=== PATIENT | female | born 1990 | race Caucasian/White ===

== ENCOUNTER 2020-04-01 08:54 | Inpatient (IN) | payer OTHER ==
[~2020-04-01] VITALS: Ht 172.7 cm; Wt 87.1 kg
[2020-04-01 09:07] VITALS: BP 157/92
--- NOTE | 2020-04-01 09:30 | NUR ---
UNABLE TO GIVE MEDS, IV NOT IN PLACE. IV TEAM PAGED.
[2020-04-01 09:36] LABS: URINE BLOOD NEGATIVE (Negative); URINE COLOR YELLOW; URINE GLUCOSE-RANDOM* NEGATIVE (Negative); URINE KETONES 2+ (Negative); URINE NITRITE-REFLEX NEGATIVE (Negative); URINE PROTEIN (DIPSTICK) NEGATIVE (Negative); URINE SPECIFIC GRAVITY 1.015 (1.005-1.035)
[2020-04-01 09:48] LABS: URINE LEUKOCYTES-REFLEX 2+ (Negative)
[2020-04-01 09:49] LABS: ICTOTEST (BILI CONFIRMATORY) Negative (Negative); URINE BILIRUBIN NEGATIVE (Negative); URINE CLARITY SL HAZY
[2020-04-01 10:04] LABS: CASTS None Seen /LPF (None Seen); SQUAMOUS >10 Many /LPF (0-3)
[2020-04-01 10:05] LABS: CRYSTALS None Seen /LPF (None Seen); URINE RBC None Seen /HPF (0-2); URINE WBC-REFLEX 6-15 Few /HPF (0-5)
--- NOTE | 2020-04-01 10:46 | NUR ---
HAVE ATTEMPTED TO START IV BY DIFFERENT NURSES. BLOOD DRAWN BUT UNABLE TO START IV. IV TEAM PAGED 3RD TIME.
[2020-04-01] MEDS ORDERED: LORAZEPAM 0.50.5 MG PO (10:55)
[2020-04-01] MEDS ORDERED: HYDROCODON-ACE1 EAC7 PO (10:56)
[2020-04-01 11:02] LABS: HEMATOCRIT 39.8 % (37.0-47.0); HEMOGLOBIN 13.7 gm/dL (12.0-15.0); MCH 36.4 pg (26.0-34.0); MCHC 34.3 g/dL (28.0-37.0); PLATELET COUNT 381 thou/uL (150-400); RBC 3.75 mil/uL (4.20-5.00); RDW 14.6 % (10.5-14.5)
[2020-04-01 12:06] LABS: CALCIUM 8.6 mg/dL (8.5-10.1); CREATININE 0.6 mg/dL (0.6-1.0); POTASSIUM 3.3 mmol/L (3.5-5.1)
[2020-04-01 12:12] LABS: ALBUMIN 2.3 g/dL (3.4-5.0); TOTAL BILIRUBIN 1.2 mg/dL (0.2-1.0); TOTAL PROTEIN 7.2 g/dL (6.4-8.2)
[2020-04-01 12:23] LABS: ABSOLUTE NEUTROPHILS 9.9 thou/uL (1.4-8.2); ANISOCYTOSIS SLIGHT; MACROCYTES SLIGHT
[2020-04-01 15:58] VITALS: BP 114/64
[2020-04-01 16:23] LABS: FOLIC ACID 1.1 ng/mL (8.6-58.9)
[2020-04-01 16:25] LABS: CHOLESTEROL 91 mg/dL (<200); HDL CHOLESTEROL 19 mg/dL (>40); LDL CHOLESTEROL 52 mg/dL (<100); TC:HDL 4.8 Ratio (Not establshd); TRIGLYCERIDE 100 mg/dL (<150); VLDL 20 mg/dL (<40)
[2020-04-01 16:36] VITALS: BP 134/86
[2020-04-01 17:17] VITALS: BP 132/96
--- NOTE | 2020-04-01 17:59 | NUR ---
PT CARE ASSUMED APPROX 1710. ASSESSMENT CHARTED. PT'S HR ELEVATED WHILE COMPLAINING OF PAIN. VITAL SIGNS OTHERWISE STABLE. PT REPORTS ADEQUATE PAIN MANAGEMENT OF LUQ AND BACK PAIN. UP WITH STEADY GAIT. FALL PREVENTION EDUCATION REVIEWED WITH PT AND SHE STATES UNDERSTANDING. POC REVIEWED WITH PT AND SHE DENIES QUESTIONS OR CONCERNS. NO DISTRESS NOTED.
[2020-04-01 19:54] VITALS: BP 136/77
--- NOTE | 2020-04-02 02:56 | NUR ---
PT IS A&OX4. PT HAS A TEMP OF 101.3 AND PULSE IS 126. STATES THAT SHE NEEDS HER LORAZEPAM BECAUSE SHE HAD AN ANXIETY ATTACK. I ADMINISTERED LORAZEPAM AND TYLENOL. PT IS RESTING IN HER ROOM. AT THE BEGINING OF THE SHIFT PT WAS FRUSTRATED THAT HER ROOM PHONE WAS NOT WORKING. RESOLVED HER ISSUE. I WILL CONTINUE TO MONITOR.
[2020-04-02 04:32] VITALS: BP 120/71
[2020-04-02 07:45] VITALS: BP 129/73
[2020-04-02 08:32] LABS: HEMATOCRIT 39.4 % (37.0-47.0); HEMOGLOBIN 13.2 gm/dL (12.0-15.0); MCH 35.9 pg (26.0-34.0); MCHC 33.5 g/dL (28.0-37.0); RBC 3.68 mil/uL (4.20-5.00); RDW 14.5 % (10.5-14.5); WBC 9.6 thou/uL (4.0-11.0)
[2020-04-02 08:48] LABS: CALCIUM 8.4 mg/dL (8.5-10.1); CREATININE 0.5 mg/dL (0.6-1.0); POTASSIUM 3.4 mmol/L (3.5-5.1)
--- NOTE | 2020-04-02 14:08 | NUR ---
Assumed pt care at 7am.Assessment completed.vss but hr was elevated, which was normal for pt.Dr Nichols here,order noted. Pt left for abdominal us and returned to room some minutes later.Anti anxiety med given per pt request. Pt wanted to eat and drink buT Dr Mejia wanted Gi seen pt prior to any po intake except for meds.Pt was tearful and stated that she wasn't staying over the weekend if not seen today by gi.Dr Floyd notified, and Kimberly leyva rounded on pt.Will continue to monitor.
[2020-04-02 15:50] VITALS: BP 136/80
--- NOTE | 2020-04-02 16:30 | NUR ---
CM ATTEMPTED PC TO PT'S ROOM THIS DAY WITH NO RESPONSE. CM PUT SAFTEY NET CLINIC PACKET AND RESOURCES FOR SUBSTANCE ABUSE PROGRAMS IN PT'S WALL HOTEL SERVICE SUPERVISOR. SHOULD PT NEED ADDITIONAL ASSISTANCE UPON DC CM ABLE TO FOLLOW UP.
[2020-04-02 19:40] VITALS: BP 124/72
--- NOTE | 2020-04-03 04:01 | NUR ---
ASSUMED PT CARE AT MIDNIGHT.PT WAS ASLEEP AND SEEMS TO BE IN NO DISTRESS.PT CONT ON IVF ORDERED.PT UP ADLIB IN HER ROOM.PT SLEEPING AT THIS TIME.PT INFORMED TO USE CALL LIGHT FOR ASSISTANCE.CALL LIGHT WITHIN REACH.
[2020-04-03 07:36] VITALS: BP 130/85
[2020-04-03 13:01] LABS: ALBUMIN 1.7 g/dL (3.4-5.0); CALCIUM 7.4 mg/dL (8.5-10.1); CREATININE 0.4 mg/dL (0.6-1.0); DIRECT BILIRUBIN 0.3 mg/dL (<0.1-0.2); MAGNESIUM 1.5 mg/dL (1.8-2.4); PHOSPHORUS 3.7 mg/dL (2.5-4.9); POTASSIUM 3.2 mmol/L (3.5-5.1); TOTAL BILIRUBIN 0.6 mg/dL (0.2-1.0); TOTAL PROTEIN 5.3 g/dL (6.4-8.2)
[2020-04-03] MEDS ORDERED: FOLIC ACID1 MG PO (13:30)
[2020-04-03] MEDS ORDERED: ONDANSETRON HCL4 M2 PO (13:31)
[2020-04-03] MEDS ORDERED: VITAMIN B-125000 MCG SUBLING (13:32)
[2020-04-03] MEDS ORDERED: PROTONIX40 M2 PO (13:33)
[2020-04-03 14:41] VITALS: BP 136/82
--- NOTE | 2020-04-03 16:18 | NUR ---
Assumed pt care at 7am.Pt in and out of bed to the bathroom independently. Assessment completed.vss and hr was better this am compared to yesterday am. Pt was anxious about going home today after seen Dr Ford.But when Dr Diaz rounded,pt c/o bilat le weakness and some labs ordered.When lab reviewed by Dr Diaz,some meds were ordered.When it was time to give these meds and rn explaining to pt,she was upset and frustrated saying that why and how come nobody treated her abnormal labs until today.She went on started cursing.Rn just smile and said Dr Diaz will be notified.After few minutes of paging,Dr Diaz rounded on pt.Antianxiety med given. Pt boyfriend at bs most of the time this afternoon.After mg so4 iv completed,pt might possibly dc home.Will continue to monitor.
[2020-04-03 17:09] VITALS: BP 136/82
== END 2020-04-03 17:37 | disposition home or self-care (01) | DRG 440 ==
LOC: ER 08:54 → EROBS 14:43 → 4W 17:15
PROVIDERS: Emergency Medicine; Nurse Practitioner; ADMIT Hospitalist; ATTEND Hospitalist
DX: K85.90 Acute pancreatitis without necrosis or infection, unspecified (principal); F41.9 Anxiety disorder, unspecified; F10.10 Alcohol abuse, uncomplicated; F12.10 Cannabis abuse, uncomplicated; F32.9 Major depressive disorder, single episode, unspecified; K86.1 Other chronic pancreatitis; J45.909 Unspecified asthma, uncomplicated; E87.6 Hypokalemia; E83.42 Hypomagnesemia; E53.8 Deficiency of other specified B group vitamins; K76.0 Fatty (change of) liver, not elsewhere classified; Z79.899 Other long term (current) drug therapy
CPT/HCPCS: 10040; 10045

== ENCOUNTER 2020-04-12 16:32 | Inpatient (IN) | payer OTHER ==
[~2020-04-12] VITALS: Ht 172.7 cm; Wt 90.8 kg
[~2020-04-12 16:32] MED LIST: FOLIC ACID1 MG PO; HYDROCODON-ACE1 EAC7 PO; LORAZEPAM 0.50.5 MG PO; ONDANSETRON HCL4 M2 PO; PROTONIX40 M2 PO; VITAMIN B-125000 MCG SUBLING
[2020-04-12 16:40] VITALS: BP 143/94
[2020-04-12 16:45] LABS: URINE BILIRUBIN NEGATIVE (Negative); URINE BLOOD NEGATIVE (Negative); URINE CLARITY CLEAR; URINE COLOR YELLOW; URINE GLUCOSE-RANDOM* NEGATIVE (Negative); URINE KETONES NEGATIVE (Negative); URINE NITRITE-REFLEX NEGATIVE (Negative); URINE PROTEIN (DIPSTICK) NEGATIVE (Negative); URINE UROBILINOGEN 0.2 E.U./dl (0.2-1.0)
[2020-04-12 16:46] LABS: URINE LEUKOCYTES-REFLEX 2+ (Negative)
[2020-04-12 16:52] LABS: SQUAMOUS >10 Many /LPF (0-3)
[2020-04-12 16:53] LABS: CASTS None Seen /LPF (None Seen); CRYSTALS None Seen /LPF (None Seen); URINE RBC None Seen /HPF (0-2); URINE WBC-REFLEX 6-15 Few /HPF (0-5)
[2020-04-12 18:25] LABS: ABSOLUTE NEUTROPHILS 8.3 thou/uL (1.4-8.2); BASOPHILS 0.6 % (0.0-2.0); EOSINOPHILS 0.8 % (0.0-3.0); HEMATOCRIT 32.4 % (37.0-47.0); HEMOGLOBIN 11.6 gm/dL (12.0-15.0); MCH 37.1 pg (26.0-34.0); MCHC 35.9 g/dL (28.0-37.0); MCV 103.4 fL (80.0-100.0); MONOCYTES 8.9 % (1.0-8.0); PLATELET COUNT 488 thou/uL (150-400); POLYS 72.7 % (36.0-66.0); RBC 3.13 mil/uL (4.20-5.00); RDW 14.4 % (10.5-14.5); WBC 11.5 thou/uL (4.0-11.0)
[2020-04-12 18:33] LABS: CALCIUM 8.4 mg/dL (8.5-10.1); CREATININE 0.5 mg/dL (0.6-1.0); POTASSIUM 3.8 mmol/L (3.5-5.1)
[2020-04-12 18:40] LABS: ALBUMIN 2.3 g/dL (3.4-5.0); TOTAL BILIRUBIN 0.5 mg/dL (0.2-1.0)
[2020-04-12 21:39] VITALS: BP 130/88
--- NOTE | 2020-04-12 21:47 | NUR ---
TRIED TO CALL REPORT. NO ANSWER.
--- NOTE | 2020-04-12 21:52 | NUR ---
TRIED TO CALL REPORT, NURSE UNAVAILABLE.
[2020-04-12 22:30] VITALS: BP 119/82
--- NOTE | 2020-04-13 01:03 | NUR ---
Pt admitted from ED @2205 via cart by staff. A/OX4,VSS. Pt is up ad yuly,educated on fall safety and agrees to call for help as needed. C/o pain to left flank/LLQ 7/10 medicated per EMAR with relief. Stated she had nausea in ED but not currently. Skin intact. SCDs applied. Pt's NPO for possible GI work-up. IVF infusing via RUE w/o any problems. Resting quietly w/o any problems voiced. Will continue to monitor pt.
[2020-04-13 04:02] VITALS: BP 111/74
[2020-04-13 07:45] VITALS: BP 119/80
[2020-04-13 07:55] LABS: HEMATOCRIT 38.7 % (37.0-47.0); HEMOGLOBIN 12.7 gm/dL (12.0-15.0); MCH 34.5 pg (26.0-34.0); MCHC 32.8 g/dL (28.0-37.0); MCV 105.1 fL (80.0-100.0); RBC 3.68 mil/uL (4.20-5.00); WBC 7.5 thou/uL (4.0-11.0)
[2020-04-13 08:16] LABS: CREATININE 0.6 mg/dL (0.6-1.0); POTASSIUM 3.3 mmol/L (3.5-5.1)
--- NOTE | 2020-04-13 14:04 | NUR ---
ASSESSMENT: CM REVIEWED CHART AND MET WITH PATIENT AT THE BEDSIDE. PT IS ALERT AND ORIENTED X4. PT WAS ADMITTED DUE TO PANCREATITIS. PT WILL REMAIN ON IV ANBX. CM SPOKE WITH GI PAGE MAKEUP SYSTEM OPERATOR WHO STATES PATIENT MAY NEED AN ENDOSCOPIC ULTRASOUND OUTPT LATER ON AND REQUESTING TO LOOK INTO OPTIONS OF PLACES SHE COULD GO DUE TO NO INSURANCE. [facility] CONTACTED [facility] [phone] WHO REPORTS THEY DO ENDOSCOPIC ULTRASOUNDS AND THAT PATIENT WOULD HAVE TO PAY A 488 DOLLAR DOWNPAYMENT AND THEN BE BILLED THE REST. SHE REPORTS THAT PATIENT COULD ALSO CALL FINANCIAL ASSISTANCE TO SEE IF SHE QUALIFIES AT [phone]. CM NOTIFIED PAGE MAKEUP SYSTEM OPERATOR OF INFORMATION WELL PROVIDED PATIENT THIS INFORMATION AT THE BEDSIDE. PT REPORTS THAT SHE DOES HAVE A PCP DR. STEVE PARK AT [facility]. PT REPORTS SHE DOES NOT HAVE INSURANCE. SARATH SPOKE WITH STEVE AT [facility] WHO REPORTS PATIENT DOES NOT QUALIFY FOR MEDICAID. CM PROVIDED PATIENT WITH HEALTH RESOURCE GUIDE. PTS MOTHER IS AT BEDSIDE. PT REPORTS NO FUTHER NEEDS FROM SARATH AT THIS TIME. CM WILL CONTINUE TO FOLLOW TO ASSIST NEEDED.
[2020-04-13 16:15] VITALS: BP 125/83
--- NOTE | 2020-04-13 19:59 | NUR ---
PATIENT HAS PRN MEDS ON SHIFT ZOFRAN AND MORPHINE Q 4 HOURS, LORAZAPAM Q 8 HRS IV PUSH MEDS. PT IS CLEAR LIQUID DIET. CONT OF B&B. HAD X-RAY ON SHIFT. PATIENT AND MOTHER CRITICAL OF DOCTORS AND STAFF AT THIS HOSPITAL. MOTHER DOES NOT WANT [employer] TAMPING MACHINE OPERATOR FOR GI GROUP IN PATIENT'S ROOM. PT HAS TYLENOL PRN MED Q 6 FOR HEADACHE PAIN. CONT ON IV ABT'S DOCTORS HAVE ORDERED. HAS IV FLUIDS INFUSING.
[2020-04-13 20:17] VITALS: BP 129/92
--- NOTE | 2020-04-14 00:07 | NUR ---
ASSUMED PT CARE AT AROUND 1915 HRS. PT OBSERVED IN BED. SHE IS SAD AND HAS LOTS OF COMPLAINS ABOUT HER PLAN OF CARE. PT STATING THAT SHE IS RECEIVING CONFLICTING INFORMAION FROM THE DOCTORS. WHEN I ENQUIRED FURTHER, SHE FOR EXAMPLE SAYS SHE WAS TOLD SHE HAS A UTI, THEN THAT SHE DID NOT. I DID MY BEST TO ANSWER HER QUESTIONS. PT ALSO IS FRUSTRATED ABOUT OUT OF POCKET PAYMENTS SHE NEEDS FOR THE EUS. I SUGGESTED LETTING THE SMALL PARTS ASSEMBLER SEE HER, PT SAID SHE ALREADY SPOKE ITH FIGURE SKATER. WHAT I DID IS OFFER A THERAPEUTIC EAR FOR THE MOST TIME.SHE WAS TEARFUL.SHE GETS ANGRY AND SAYS MEAN WORDS.PAIN WELL MANAGED WITH MORPHINE IVP. SHE REPORTS ONE EPISODE OF EMESIS-GIVEN PRN ZOFRAN.REMAINS ON CLR LIQUIDS. PAIN IS MOSTLY IN LUQ AND LLQ. AFEBRILE. IV FLUIDS INFUSING. CALL LIGHT WITHIN REACH.
[2020-04-14 10:02] LABS: HEMATOCRIT 31.3 % (37.0-47.0); MCH 35.4 pg (26.0-34.0); MCHC 33.7 g/dL (28.0-37.0); MCV 105.2 fL (80.0-100.0); RBC 2.97 mil/uL (4.20-5.00); RDW 14.1 % (10.5-14.5); WBC 7.7 thou/uL (4.0-11.0)
[2020-04-14 10:07] LABS: HEMOGLOBIN 10.5 gm/dL (12.0-15.0)
--- NOTE | 2020-04-14 12:40 | NUR ---
on-going assessment: CM REVIEWED CHART. PT REMAINS ON CLEARS AND IS ON IV ANBX. CM WILL CONTINUE TO FOLLOW TO ASSIST NEEDED.
[2020-04-14 16:38] VITALS: BP 132/92
--- NOTE | 2020-04-14 19:16 | NUR ---
PT IS AOX4, VSS, PAIN CONTROLLED WITH IV PAIN ANALGESIC. PT RECEIVED ZOFRAN FOR N/V. PT UP AD BRITT IN ROOM TO RESTROOM. PT CALLS APPROPRIATELY, CALL LIGHT IN REACH. WILL CONTINUE TO MONITOR.
[2020-04-14 19:29] VITALS: BP 131/92
[2020-04-15 03:56] VITALS: BP 127/93
--- NOTE | 2020-04-15 04:43 | NUR ---
OVERALL, PT SEEMS TO BE DOING ALOT BETTER. SHE IS CALMER. IV ABTS DC/D. PT REMAINS UP AD BRITT. LIKES MORPHINE TO BE GIVEN TOGETHER WITH ZOFRAN. NO NAUSEA OR VOMITING IN THIS SHIFT.NO CONCERNS PRESENTED TONIGHT.CALL LIGHT WITHIN REACH.
[2020-04-15 06:41] LABS: CALCIUM 6.9 mg/dL (8.5-10.1); CREATININE 0.4 mg/dL (0.6-1.0)
[2020-04-15 08:28] VITALS: BP 139/96
[2020-04-15] MEDS ORDERED: ZOFRAN ODT4 MG PO (09:28)
[2020-04-15] MEDS ORDERED: HYDROCODON-ACE1 EAC7 PO (09:28)
--- NOTE | 2020-04-15 14:29 | NUR ---
ON-GOING ASSESSMENT: CM REVIEWED CHART. PT IS STILL HAVING SOME NAUSEA ON CLEAR LIQUIDS. DISCUSSED POSSIBLE WAS POSSIBLE DISCHARGE TODAY PENDING GI BUT PT IS STILL EXPERIEINCING NAUSEA ON CLEARS AND ADVISED NOT TO DISCHARGE UNTIL CAN TOLERATE DIET. CM WILL CONTINUE TO FOLLOW TO ASSIST NEEDED.
[2020-04-15 16:29] VITALS: BP 116/59
--- NOTE | 2020-04-15 18:42 | NUR ---
PT IS AOX4, VSS, REPORTS FEELING HIVES WITH SCOPOLAMINE PATCH. DR. TRIANA REPORTS TAKES PATCH OFF AND GIVE BENEDRYL PRN. PAIN CONTROLLED WITH IV ANALGESIC. CALL LIGHT IN REACH, WILL CONTINUE TO MONITOR.
[2020-04-15 21:30] VITALS: BP 143/100
--- NOTE | 2020-04-16 02:48 | NUR ---
ASSUMED PT CARE AT AROUND 1915HRS. ASSESSMENT COMPLETED. PT REPORTS HAVING HAD A BAD DAY. SAME OLD COMPLAINS. SHE DENIES ANY PAIN AND NAUSEA SO FAR. IVF INFUSING. NO ITCHING SO FAR.pT UP AD BRITT IN ROOM. CALLS WITH NEEDS.
[2020-04-16 04:35] VITALS: BP 148/107
[2020-04-16 07:55] VITALS: BP 131/89
--- NOTE | 2020-04-16 13:57 | NUR ---
ON-GOING ASSESSMENT: CM REVIEWED CHART. PT REMAINS ON CLEARS/BLAND DIET. DR. HERRON HAS BEEN CONSULTED PER PATIENTS REQUEST. PT IS FROM HOME AND CM ALREADY PROVIDED PATIENT WITH RESOURCE PACKET DUE TO NOT HAVING INSURANCE. CM WILL CONTINUE TO FOLLOW TO ASSIST NEEDED.
--- NOTE | 2020-04-16 14:20 | NUR ---
Assumed care of pt at 0700. Pt a&ox4. Pain controlled with prn pain meds. IVF infusing. Pt states she would like to have Dr. Ba consulted. Pt also states she would like to see a different hospital doctor tomorrow. Call light within reach. Will continue to monitor.
[2020-04-16 16:55] VITALS: BP 139/96
[2020-04-16 20:20] VITALS: BP 127/88
--- NOTE | 2020-04-17 02:00 | NUR ---
PAIN ASSESSED AT START OF SHIFT. PAIN MANAGED WITH IV MORPHINE AND ZOFRAN GIVEN FOR NAUSEA NO EMESIS NOTED. IV INTACT AND FLUIDS INFUSING. PT UP AD BRITT TO THE BATHROOM. CALL LIGHT IN REACH AND WILL CONT TO MONITOR.
[2020-04-17 05:36] LABS: ABSOLUTE NEUTROPHILS 4.4 thou/uL (1.4-8.2); BASOPHILS 1.3 % (0.0-2.0); EOSINOPHILS 3.3 % (0.0-3.0); HEMATOCRIT 34.8 % (37.0-47.0); HEMOGLOBIN 11.9 gm/dL (12.0-15.0); LYMPHOCYTES 24.1 % (24.0-44.0); MCH 35.1 pg (26.0-34.0); MCHC 34.1 g/dL (28.0-37.0); MCV 103.1 fL (80.0-100.0); POLYS 61.3 % (36.0-66.0); RBC 3.37 mil/uL (4.20-5.00); RDW 14.1 % (10.5-14.5); WBC 7.2 thou/uL (4.0-11.0)
[2020-04-17 05:40] LABS: PLATELET COUNT 408 thou/uL (150-400)
[2020-04-17 06:00] LABS: ALBUMIN 1.9 g/dL (3.4-5.0); CREATININE 0.6 mg/dL (0.6-1.0); POTASSIUM 3.5 mmol/L (3.5-5.1); TOTAL BILIRUBIN 0.4 mg/dL (0.2-1.0); TOTAL PROTEIN 6.4 g/dL (6.4-8.2)
[2020-04-17 08:25] VITALS: BP 130/91
[2020-04-17 16:04] VITALS: BP 122/83
--- NOTE | 2020-04-17 17:32 | NUR ---
Assumed care of pt. at 0700. Pt. was calm and cooperative. She requested her labs over the past few days to compare Lipase values. While initially distressed she seemed to be okay after talking about it. UA was collected in the afternoon and sent to lab.
[2020-04-17 17:38] LABS: URINE BILIRUBIN NEGATIVE (Negative); URINE BLOOD NEGATIVE (Negative); URINE CLARITY CLEAR; URINE COLOR YELLOW; URINE GLUCOSE-RANDOM* NEGATIVE (Negative); URINE KETONES NEGATIVE (Negative); URINE LEUKOCYTES 2+ (Negative); URINE NITRITE NEGATIVE (Negative); URINE PROTEIN (DIPSTICK) NEGATIVE (Negative); URINE UROBILINOGEN 0.2 E.U./dl (0.2-1.0)
[2020-04-17 17:49] LABS: SQUAMOUS 0-3 Few /LPF (0-3)
[2020-04-17 17:50] LABS: BACTERIA 1-9 Few /HPF (None Seen); CASTS None Seen /LPF (None Seen); CRYSTALS None Seen /LPF (None Seen); URINE RBC None Seen /HPF (0-2); URINE WBC 0-5 Rare /HPF (0-5); YEAST Present (None Seen)
[2020-04-17 19:23] VITALS: BP 127/84
--- NOTE | 2020-04-18 00:32 | NUR ---
ASSESSED AT START OF SHIFT. EVENING MEDS GIVEN AND PT TRACEE IT WELL. SCHEDULED REGLAN GIVEN, PT STATED TRACEE DINNER WELL. IV INTACT WITH IVF. PT UP AD BRITT TO THE BATHROOM. SLEPT THROUGH THE SHIFT. VSS. CALL LIGHT AT REACH. WILL CONT WITH POC TILL EOS.
[2020-04-18 04:43] VITALS: BP 144/95
[2020-04-18 06:28] LABS: ALBUMIN 1.7 g/dL (3.4-5.0); CALCIUM 7.9 mg/dL (8.5-10.1); CREATININE 0.4 mg/dL (0.6-1.0); MAGNESIUM 1.6 mg/dL (1.8-2.4); POTASSIUM 3.6 mmol/L (3.5-5.1); TOTAL BILIRUBIN 0.3 mg/dL (0.2-1.0); TOTAL PROTEIN 5.4 g/dL (6.4-8.2)
[2020-04-18 07:35] VITALS: BP 136/96
[2020-04-18 14:31] VITALS: BP 136/96
--- NOTE | 2020-04-18 14:59 | NUR ---
PT CARE ASSUMED AT 0700. A&Ox4. PT UP INDEPENDENTLY IN THE ROOM. NO N/V NOTED AND TOLERATING FOOD WELL. PT STATES THAT SHE CAN TOLERATE HER GASTRIC PAIN WELL WITHOUT PAIN MEDICATION. MAGNESIUM LOW AT 1.3, TREATED WITH A ONE TIME DOSE OF MAGNESIUM. NOW ON ELECTROLYTE PROTOCOL PER MD. IV PATENT WITH NO REDNESS OR EDEMA, FLUIDS INFUSING. PT DISCHARGING. DISCHARGE INSTRUCTIONS GIVEN WITH NO QUESTIONS. IV REMOVED. WILL DISCHARGE WITH MOTHER THAT IS IN ROOM.
== END 2020-04-18 15:15 | disposition home or self-care (01) | DRG 440 ==
LOC: ER 16:32 → EROBS 20:35 → 4S 22:03
PROVIDERS: Hospitalist; Nurse Practitioner; Nurse Practitioner Family; Physician Assistant; Specialist; ADMIT Hospitalist; ATTEND Hospitalist
DX: K85.20 Alcohol induced acute pancreatitis without necrosis or infection (principal); F41.9 Anxiety disorder, unspecified; K86.1 Other chronic pancreatitis; J45.909 Unspecified asthma, uncomplicated; F32.9 Major depressive disorder, single episode, unspecified; K52.9 Noninfective gastroenteritis and colitis, unspecified; F12.10 Cannabis abuse, uncomplicated; K76.0 Fatty (change of) liver, not elsewhere classified; D53.9 Nutritional anemia, unspecified; Z79.899 Other long term (current) drug therapy; Z20.828 Contact with and (suspected) exposure to other viral communicable diseases
CPT/HCPCS: 10100; 10195

== ENCOUNTER 2021-10-04 15:19 | Emergency (ER) | payer OTHER ==
[~2021-10-04] VITALS: Ht 172.7 cm; Wt 72.6 kg
--- NOTE | ~2021-10-04 | EMS ---
[place] [address] EMS Patient Care Report Name: OG RIVERS Room #: REG [facility].Jhonny#: [id number] Admission: 10/04/21 Attend Phys: Discharge: Date of : [birth year] Report #: [id number] THIS REPORT FOR: //name// Report Transmitted: 10/04/2021 15:25 EMS Care Summary [place], [place]/[facility] Incident [id number] @ 10/04/2021 14:32 Incident Location [address] [place] [address] Patient PERRY RIVERS Female, 30 Years 1990 Patient Address [address] [place] [address] Patient History Anxiety Disorder (Panic Attacks),Anxiety,Post Traumatic Stress Disorder (PTSD),Anorexia Nervosa, Patient Allergies Other drug allergy, Patient Medications Ativan, Chief Complaint Suicidal ideations Disposition Transported No Lights/[place]patch Reason Psychiatric Problem/Abnormal Behavior/Suicide Attempt Transported To [facility] Narrative Called for a psych. Upon arrival, [facility] on the scene. Pt was SI from an event that happened previously. Pt agreed to go voluntarily to the ER for further eval & tx. She walked to the ambulance, climbed in and sat down [place] [address] EMS Patient Care Report Name: OG RIVERS Room #: REG M.R.#: [id number] Admission: 10/04/21 Attend Phys: Discharge: Date of : [birth year] Report #: [id number] Vitals obtained. En route: Vitals repeated. RR to the ER. Arrived: pt taken to ER #8 and moved to their bed w/o incident. Pt care & report to ER staff. Initial Vitals @14:53P: 106,R: 18,BP: 155/104,Pain: 0/10,GCS: 15,CO: 0,SpO2: 97,Revised Trauma: 12, @14:51P: 106,R: 18,BP: 160/105,Pain: 0/10,GCS: 15,SpO2: 98,Revised Trauma: 12, Assessments @14:46MENTAL:Time Oriented,Person Oriented,Place Oriented,Event Oriented,SKIN:HEENT:LUNG SOUNDS:ABDOMEN:PELVIS//GI:EXTREMITIES:Left Arm: No Abnormalities,Right Arm: No Abnormalities,Left Leg: No Abnormalities,Right Leg: No Abnormalities,PULSE:Radial: 2+ Normal,NEURO:No Abnormalities, Impression Suicidal Ideation Procedures @14:46 ALS Assessment Response: UnchangedSucceeded Timeline 14:31,Call Received 14:31,Dispatch Notified 14:32,Dispatched 14:33,En Route 14:45,On Scene 14:46,At Patient 14:46,ALS Assessment,Response: UnchangedSucceeded, 14:51,BP: 160/105 M,PULSE: 106,RR: 18 R,SPO2: 98 Ox,ETCO2: ,BG: ,PAIN: 0,GCS: 15, 14:53,BP: 155/104 M,PULSE: 106,RR: 18 R,SPO2: 97 Ox,ETCO2: ,BG: ,PAIN: 0,GCS: 15, 14:59,Depart Scene 15:12,At Destination 15:30,Call Closed Disclaimer v1.1 Copyright 2021 [email or web address], [employer] This EMS Care Summary contains data elements from the applicable legal record (which may be displayed differently). It is designed to provide pertinent information for the following purposes: continuity of care, clinical quality, and state data reporting. The complete legal record is available to ED staff and administrators of the receiving hospital in [employer]'s Patient Tracker. All data is provided "as is."
--- NOTE | ~2021-10-04 | EMS ---
[place] [address] EMS Patient Care Report Name: OG RIVERS Room #: REG [facility].Jhonny#: [id number] Admission: 10/04/21 Attend Phys: Discharge: Date of : [birth year] Report #: [id number] THIS REPORT FOR: //name// Report Transmitted: 10/04/2021 16:26 EMS Care Summary [place], [place]/[facility] Incident [id number] @ 10/04/2021 14:32 Incident Location [address] [place] [address] Patient PERRY RIVERS Female, 30 Years 1990 Patient Address [address] [place] [address] Patient History Anxiety Disorder (Panic Attacks),Anxiety,Post Traumatic Stress Disorder (PTSD),Anorexia Nervosa, Patient Allergies Other drug allergy, Patient Medications Ativan, Chief Complaint Suicidal ideations Disposition Transported No Lights/[place] Reason Psychiatric Problem/Abnormal Behavior/Suicide Attempt Transported To [facility] Narrative Called for a psych. Upon arrival, [facility] on the scene. Pt was SI from an event that happened previously. Pt agreed to go voluntarily to the ER for further eval & tx. She walked to the ambulance, climbed in and sat down w[place] [address] EMS Patient Care Report Name: OG RIVERS Room #: REG M.R.#: [id number] Admission: 10/04/21 Attend Phys: Discharge: Date of : 89 Report #: [id number] Vitals obtained. En route: Vitals repeated. RR to the ER. Arrived: pt taken to ER #8 and moved to their bed w/o incident. Pt care & report to ER staff. Initial Vitals @14:53P: 106,R: 18,BP: 155/104,Pain: 0/10,GCS: 15,CO: 0,SpO2: 97,Revised Trauma: 12, @14:51P: 106,R: 18,BP: 160/105,Pain: 0/10,GCS: 15,SpO2: 98,Revised Trauma: 12, Assessments @14:46MENTAL:Time Oriented,Person Oriented,Place Oriented,Event Oriented,SKIN:HEENT:LUNG SOUNDS:ABDOMEN:PELVIS//GI:EXTREMITIES:Left Arm: No Abnormalities,Right Arm: No Abnormalities,Left Leg: No Abnormalities,Right Leg: No Abnormalities,PULSE:Radial: 2+ Normal,NEURO:No Abnormalities, Impression Suicidal Ideation Procedures @14:46 ALS Assessment Response: UnchangedSucceeded Timeline 14:31,Call Received 14:31,Dispatch Notified 14:32,Dispatched 14:33,En Route 14:45,On Scene 14:46,At Patient 14:46,ALS Assessment,Response: UnchangedSucceeded, 14:51,BP: 160/105 M,PULSE: 106,RR: 18 R,SPO2: 98 Ox,ETCO2: ,BG: ,PAIN: 0,GCS: 15, 14:53,BP: 155/104 M,PULSE: 106,RR: 18 R,SPO2: 97 Ox,ETCO2: ,BG: ,PAIN: 0,GCS: 15, 14:59,Depart Scene 15:12,At Destination 15:30,Call Closed Disclaimer v1.1 Copyright 2021 [employer], [employer] This EMS Care Summary contains data elements from the applicable legal record (which may be displayed differently). It is designed to provide pertinent information for the following purposes: continuity of care, clinical quality, and state data reporting. The complete legal record is available to ED staff and administrators of the receiving hospital in [employer]'s Patient Tracker. All data is provided "as is."
[~2021-10-04 15:19] MED LIST changes: +ZOFRAN ODT4 MG PO
[2021-10-04 15:59] LABS: URINE BILIRUBIN NEGATIVE (Negative); URINE BLOOD NEGATIVE (Negative); URINE CLARITY CLEAR; URINE COLOR YELLOW; URINE GLUCOSE-RANDOM* NEGATIVE (Negative); URINE KETONES NEGATIVE (Negative); URINE LEUKOCYTES-REFLEX NEGATIVE (Negative); URINE NITRITE-REFLEX NEGATIVE (Negative); URINE PROTEIN (DIPSTICK) NEGATIVE (Negative); URINE SPECIFIC GRAVITY <= 1.005 (1.005-1.035); URINE UROBILINOGEN 0.2 E.U./dl (0.2-1.0)
[2021-10-04 16:22] LABS: ANION GAP 12 mmol/L (7-16); BUN 2 mg/dL (7-18); CALCIUM 9.1 mg/dL (8.5-10.1); CHLORIDE 100 mmol/L (98-107); CO2 24 mmol/L (21-32); CREATININE 0.7 mg/dL (0.6-1.0); GLUCOSE 91 mg/dL (74-106); POTASSIUM 3.3 mmol/L (3.5-5.1); SODIUM 136 mmol/L (136-145)
[2021-10-04 16:28] LABS: ALBUMIN 4.3 g/dL (3.4-5.0); SALICYLATE < 2.8 mg/dL (2.8-20.0); SGOT 104 U/L (15-37); SGPT 69 U/L (14-59); TOTAL PROTEIN 8.8 g/dL (6.4-8.2)
[2021-10-04 16:39] LABS: AMP/METHAMP Negative (Negative); BARBITURATES Negative (Negative); BENZODIAZEPINES Negative (Negative); COCAINE Negative (Negative); METHADONE Negative (Negative); OPIATES Negative (Negative); PCP Negative (Negative)
[2021-10-04 16:57] LABS: HEMATOCRIT 44.6 % (37.0-47.0); HEMOGLOBIN 15.3 gm/dL (12.0-15.0); MCH 32.3 pg (26.0-34.0); MCHC 34.3 g/dL (28.0-37.0); MCV 94.3 fL (80.0-100.0); RBC 4.73 mil/uL (4.20-5.00); RDW 17.8 % (10.5-14.5); WBC 4.9 thou/uL (4.0-11.0)
[2021-10-05 06:02] VITALS: BP 140/80
== END 2021-10-04 20:00 | disposition home or self-care (01) ==
LOC: ER 15:19
PROVIDERS: Emergency Medicine
DX: R45.851 Suicidal ideations (principal); Z20.822 Contact with and (suspected) exposure to COVID-19; F41.9 Anxiety disorder, unspecified; F32.9 Major depressive disorder, single episode, unspecified; J45.909 Unspecified asthma, uncomplicated; F12.90 Cannabis use, unspecified, uncomplicated; Z79.899 Other long term (current) drug therapy; Z88.8 Allergy status to other drugs, medicaments and biological substances